=== PATIENT | male | born 1935 | race Caucasian/White ===

== ENCOUNTER → 2020-12-14 | Outpatient (CLI) | payer MEDICARE, BC ==
--- NOTE | 2020-12-14 13:44 | RAD ---
EXAM: CT HEAD WITHOUT CONTRAST. HISTORY: Balance disorder. TECHNIQUE: Computed tomography of the head was performed without intravenous contrast. One or more of the following individualized dose reduction techniques were utilized for this examination: 1. Automated exposure control. 2. Adjustment of the mA and/or kV according to patient size. 3. Use of iterative reconstruction technique. COMPARISON: None. FINDINGS: There is no intracranial hemorrhage. Hypoattenuation within the periventricular white matte r indicates mild chronic microangiopathic change. There are asymmetric calcifications within the left basal ganglia. Prominence of the lateral ventricles and hemispheric sulci indicates mild atrophy for patient age. The visualized paranasal sinuses appear clear. There are changes of bilateral cataract surgery. The t emporal bones are unremarkable. The calvarium reveals no suspicious lesions. There are atheroscleroti c calcifications of the internal carotid and vertebral arteries. IMPRESSION: 1. No acute intracranial findings. 2. 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 3. Asymmetric left basal ganglia calcifications are usually a senescent finding. Correlate with other data. Electronically signed by: Hannah Davis MD (12/14/2020 1:42 PM) [id number]
== END ==
LOC: CT 13:13 → EDBD 13:13
PROVIDERS: ATTEND Internal Medicine
DX: G31.89 Other specified degenerative diseases of nervous system (principal); G23.8 Other specified degenerative diseases of basal ganglia
CPT/HCPCS: 70450